=== PATIENT | female | born 1945 | race Caucasian/White ===

== ENCOUNTER 2022-02-17 02:21 | Inpatient (IN) | payer MEDICARE, BC ==
[~2022-02-17] VITALS: Ht 172.7 cm; Wt 80.3 kg
--- NOTE | 2022-02-17 02:22 | NUR ---
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 PT IS A/O X4, NO SOB OR LABORED BREATHING. DENIES CP/PRESSURE UPON ARRIVAL. NO GI/ DISTRESS. NO N/V. DENIES MARTINEZ/DIZZYNESS. CLEAR SPEECH, COMPLETE SENTENCES. AMBULATED FROM GURNEY TO BED IN STEADY GAIT.
--- NOTE | 2022-02-17 02:22 | NUR ---
DR. VICENTE AT BEDSIDE, MSE IN PROGRESS.
[2022-02-17] MEDS ORDERED: SPIR25TA6 PO (02:40)
[2022-02-17] MEDS ORDERED: ASPIRIN 81 MG TAB.CHEW PO ONE (03:30)
[2022-02-17] MEDS ORDERED: LIDOCAINE VISCUS 2% 15 ML UDC MM ONE (03:30)
[2022-02-17] MEDS ORDERED: NITROGLYCERIN 0.4 MG/TAB BOTTLE SL ONE ×2 (03:30→03:46)
[2022-02-17] MEDS ORDERED: MAG HYDROX/AL HYDROX/SIMETH 30 ML LIQUID UDC PO ONE (03:30)
[2022-02-17 03:42] LABS: HEMATOCRIT 40.6 % (31.2-41.9); MEAN CORPUSCULAR HEMOGLOBIN 30.6 uug (24.7-32.8); MEAN CORPUSCULAR VOLUME 85.8 fL (75.5-95.3); PLATELET COUNT (AUTO) 232 K/uL (179-408)
[2022-02-17] MEDS ORDERED: MAG HYDROX/AL HYDROX/SIMETH 30 ML LIQUID UDC ONE (03:46)
[2022-02-17] MEDS ORDERED: LIDOCAINE VISCUS 2% 15 ML UDC ONE (03:46)
[2022-02-17] MEDS ORDERED: ASPIRIN 81 MG TAB.CHEW ONE (03:46)
[2022-02-17 03:50] LABS: ALANINE AMINOTRANSFERASE 17 U/L (14-59); ALKALINE PHOSPHATASE 72 U/L (50-136); ASPARTATE AMINOTRANSFERASE 12 U/L (15-37); BILIRUBIN,DIRECT 0.1 mg/dL (0.0-0.2); BILIRUBIN,TOTAL 0.9 mg/dL (0.2-1.0); CARBON DIOXIDE 29 mmol/L (21-32); CHLORIDE 96 mmol/L (98-107); CREATININE 0.9 mg/dL (0.6-1.3); GLUCOSE 130 mg/dL (74-106); POTASSIUM 3.7 mmol/L (3.5-5.1); TOTAL PROTEIN, SERUM 7.5 g/dL (6.4-8.2); UREA NITROGEN, BLOOD 15 mg/dL (7-18)
--- NOTE | 2022-02-17 04:17 | NUR ---
PT AMBULATED TO RESTROOM STEADY GAIT, DENIES MARTINEZ/DIZZYNESS.
--- NOTE | 2022-02-17 05:00 | NUR ---
CALLED [facility] FOR PANEL CALL, ASHOK CRUZ PAGED.
[2022-02-17] MEDS ORDERED: MORPHINE SULFATE 2 MG/1 ML DISP.SYRIN IV PRN (05:15)
[2022-02-17] MEDS ORDERED: TEMAZEPAM 15 MG CAPSULE PO PRN (05:15)
[2022-02-17] MEDS ORDERED: ACETAMINOPHEN 325 MG TABLET PO PRN (05:15)
[2022-02-17] MEDS ORDERED: ACETAMINOPHEN ES 500 MG TABLET PO ONE (05:15)
[2022-02-17] MEDS ORDERED: REMEDY ESSENTIAL ZINC PASTE 113 GM TP PRN (05:15)
[2022-02-17] MEDS ORDERED: MAGNESIUM HYDROXIDE 30 ML LIQUID UDC PO PRN (05:15)
[2022-02-17] MEDS ORDERED: ONDANSETRON 4 MG/2 ML VIAL IV PRN (05:15)
[2022-02-17] MEDS ORDERED: NITROGLYCERIN 0.4 MG/TAB BOTTLE SL PRN (05:15)
[2022-02-17] MEDS ORDERED: HYDROCODONE/APAP 5-325MG TABLET PO PRN (05:15)
--- NOTE | 2022-02-17 05:55 | NUR ---
GAVE REPORT TO
[2022-02-17] MEDS ORDERED: ACETAMINOPHEN 325 MG TABLET ONE (06:03)
--- NOTE | 2022-02-17 06:21 | NUR ---
Pt. admitted to [facility] , under care of Dr. Jn Yan Dx: CP Belongs List completed
--- NOTE | 2022-02-17 06:35 | NUR ---
PATIENT ARRIVED VIA WHEELCHAIR FROM ER . DX:CP POSSIBLE ACS .INITIAL TROPONIN 10 (NEGATIVE). PATIENT AAOX4,MAEX4 WENT TO THE BATHROOM STEADY OF GAIT VOIDED. ON ROOM AIR NO RESPIRATORY DISTRESS NOTED ,BREATHING EVEN AND UNLABORED . SR ON THE HEART MONITOR WHEN ASKED PATIENT DENIES CHEST PAIN . ORIENTED WITH CALL DOWNEY AND ROOM SET UPS .
[2022-02-17] MEDS ORDERED: PANTOPRAZOLE SODIUM 40 MG TABLET.DR PO SCH (07:00)
--- NOTE | 2022-02-17 07:02 | NUR ---
PATIENT REFUSED AM LABS -WILLI THE PHEBOTOMIST WAS ABLE TO CONVINCED HER TO HAVE IT DONE .
[2022-02-17 07:05] VITALS: BP 175/78
--- NOTE | 2022-02-17 08:00 | NUR ---
RECEIVED PATIENT IN BED AWAKE ALERT AND ORIENTED X3 DENIES PAIN OR SOB, SR/SB ON MONITOR
--- NOTE | 2022-02-17 09:45 | NUR ---
SEEN BY HOSPITALIST AND EXHAUST AND MUFFLER REPAIRER BOTH AGREED DISCHARGING PATIENT AND FOLLOW-UP WITH PRIMARY DOCTOR
[2022-02-17] MEDS ORDERED: ASPI81TA31 PO (10:08)
[2022-02-17] MEDS ORDERED: hydrALAZINE HCL 20 MG/1 ML VIAL IV PRN (10:30)
[2022-02-17 10:45] VITALS: BP 176/87
--- NOTE | 2022-02-17 11:38 | NUR ---
PATIENT WENT HOME STABLE WITH MEDICATION AND FOLLOW-UP INSTRUCTION GIVEN
[2022-02-17 11:52] VITALS: BP 165/63
== END 2022-02-17 11:37 | disposition home or self-care (01) | DRG 305 ==
LOC: ER 02:29 → TELE3 06:09
PROVIDERS: ADMIT Registered Nurse; ATTEND Registered Nurse
DX: I16.0 Hypertensive urgency (principal); R42 Dizziness and giddiness; R07.89 Other chest pain; E78.00 Pure hypercholesterolemia, unspecified; Z87.891 Personal history of nicotine dependence; I10 Essential (primary) hypertension; Z88.0 Allergy status to penicillin; I44.7 Left bundle-branch block, unspecified
CPT/HCPCS: 36415; 71045; 84484; 85025; 93005; A4663; G0378; J0360